=== PATIENT | male | born 1980 | race Caucasian/White ===

== ENCOUNTER 2022-01-12 15:40 | Emergency (ER) | payer OTHER, SELFPAY ==
[2022-01-12 15:48] VITALS: BP 132/87; PULSE 110; RESP 16; TEMP 36.1; O2SAT 97
--- NOTE | 2022-01-12 16:29 | ED.BACK ---
HPI - Back Pain/Injury General Chief Complaint: Back Pain/Injury Stated Complaint: Back Pain Time Seen by Provider: 01/12/22 16:29 Source: patient Mode of arrival: ambulatory Limitations: no limitations History of Present Illness HPI Narrative: 41-year-old male presents with complaint of left-sided low back pain for 4 to 5 days. States that he missed 2 days of work. Today when back pain started to feel somewhat better he went into work and was told that he needed to work note before he can come back. Patient reports history of similar left-sided back pain and was diagnosed with sciatica. Has been taking ibuprofen for his pain. States he did not have any type of injury that started pain but that he does lift heavy boxes while at work. Patient is ambulatory with steady gait, no weakness to lower extremities. Denies numbness tingling. No loss of bowel or bladder. All systems reviewed and negative except as noted above. Related Data Home Medications Medication Instructions Recorded Confirmed buspirone 15 mg tablet mg 01/12/22 Allergies Allergy/AdvReac Type Severity Reaction Status Date / Time No Known Allergies Allergy Verified 01/12/22 16:24 Review of Systems Review of Systems: CONSTITUTIONAL: Denies fever, chills, or sweats. EYES: Denies visual changes, redness, or discharge. ENT: Denies rhinorrhea, congestion, sore throat, or otalgia. CARDIOVASCULAR: Denies chest pain, palpitations, or edema. RESPIRATORY: Denies cough or dyspnea. GASTROINTESTINAL: Denies abdominal pain, nausea, vomiting, or diarrhea. GENITOURINARY: Denies dysuria or hematuria. SKIN: Denies rash or itching. MUSCULOSKELETAL: Reports left-sided low back pain. NEUROLOGIC: Denies headache, numbness, or weakness. PSYCHIATRIC: Denies anxiety or depression. All other systems reviewed are negative, except as documented in HPI. PMFSH Comments At time of signature, agree with nursing past medical, surgical, social and family history. There is no relevant family history pertinent to the presenting complaint. Exam Narrative: GENERAL: This is a well-nourished, well-developed patient, in no apparent distress. HEAD: normocephalic, atraumatic. EYES: PERRL. Sclera clear/white. Vision is grossly intact. EARS: External ears normal NOSE: External nose normal NECK: Neck supple, non-tender without lymphadenopathy, masses or thyromegaly. CARDIOVASCULAR: Regular rate and rhythm without murmurs, gallops, or rubs. RESPIRATORY: Clear to auscultation. Breath sounds equal bilaterally. No wheezes, rales, or rhonchi. SKIN: warm, Dry, intact with no suspicious lesions or rash, good texture and turgor. NEURO: awake, alert, and oriented to person, place and time. There were no obvious focal neurologic abnormalities. EXTREMITIES: No joint tenderness, effusion, or edema noted. BACK: No midline tenderness. No deformity. Tenderness to left SI joint. Positive left straight leg raise. Lower extremity strength bilaterally 5 out of 5. Course Course Level of Care: Express Care Visit Vital Signs Vital signs: Vital Signs Temperature 36.1 C L 01/12/22 15:48 Pulse Rate 110 H 01/12/22 15:48 Respiratory Rate 16 01/12/22 15:48 Blood Pressure 132/87 01/12/22 15:48 Pulse Oximetry 97 01/12/22 15:48 Oxygen Delivery Room Air 01/12/22 15:48 Temperature 36.1 C L 01/12/22 15:48 Pulse Rate 110 H 01/12/22 15:48 Respiratory Rate 16 01/12/22 15:48 Blood Pressure 132/87 01/12/22 15:48 Pulse Oximetry 97 01/12/22 15:48 Oxygen Delivery Room Air 01/12/22 15:48 Reviewed MDM - Back Pain/Injury MDM Narrative Medical decision making narrative: Patient is aware of diagnosis, understands and agrees to treatment plan. Anticipatory guidance given. Patient agrees to follow-up as directed and is aware of reasons to seek care at the emergency department. Portions of this record may have been created with voice recognition software Differential Diagnosis
[2022-01-12] MEDS: KETOROLAC (*BKC) 60 MG/2 ML VIAL IM (16:48)
== END 2022-01-12 16:56 | disposition home or self-care (01) ==
PROVIDERS: Emergency Provider Nurse Practitioner Family; PCP Physician Assistant
DX: M54.42 Lumbago with sciatica, left side (principal)
CPT/HCPCS: 96372; 99203; G0463; J1885